=== PATIENT | male | born 1960 | race Caucasian/White ===

== ENCOUNTER 2017-08-23 22:30 | Emergency (ER) | payer MEDICAID, OTHER ==
[~2017-08-23] VITALS: Ht 170.2 cm; Wt 103.0 kg
[2017-08-24 00:10] LABS: BASOPHILS # (AUTO) 0.1 X10'3 (0-0.2); HEMOGLOBIN 13.8 g/dl (14.0-17.9)
[2017-08-24 00:12] LABS: BASOPHILS % (AUTO) 0.6 % (0-1); EOSINOPHILS # (AUTO) 0.6 X10'3 (0-0.9); EOSINOPHILS % (AUTO) 3.4 % (0-6); HEMATOCRIT 41.1 % (42.0-52.0); LYMPHOCYTES # (AUTO) 3.7 X10'3 (1.1-4.8); LYMPHOCYTES % (AUTO) 20.8 % (21-51); MEAN CORPUSCULAR HEMOGLOBIN 28.8 PG (27.0-31.0); MEAN CORPUSCULAR HGB CONC 33.5 % (33.0-36.5); MEAN CORPUSCULAR VOLUME 86.1 FL (78-98); MEAN PLATELET VOLUME 8.9 FL (7.4-10.4); MONOCYTES % (AUTO) 5.4 % (2-12); NEUTROPHILS # (AUTO) 12.4 X10'3 (1.8-7.7); NEUTROPHILS % (AUTO) 69.8 % (42-75); PLATELET COUNT 260 X10'3 (140-440); RED BLOOD COUNT 4.78 X10'6 (4.70-6.10); RED CELL DISTRIBUTION WIDTH 14.3 % (11.5-14.5); WHITE BLOOD COUNT 17.7 X10'3 (4.5-11.0)
[2017-08-24 00:18] LABS: INR 0.9 INR; PROTHROMBIN TIME 9.8 SECONDS (9.0-12.0)
[2017-08-24 00:25] LABS: ALANINE AMINOTRANSFERASE 29 U/L (12-78); ALBUMIN 3.6 G/DL (3.4-5.0); ALKALINE PHOSPHATASE 48 IU/L (46-116); ANION GAP 9 (8-16); ASPARTATE AMINO TRANSFERASE 14 U/L (10-37); BILIRUBIN,TOTAL 0.4 MG/DL (0.1-1.0); BLOOD UREA NITROGEN 9 MG/DL (7-18); BUN/CREATININE RATIO 11.1 (5.4-32.0); CALCIUM 8.8 MG/DL (8.5-10.1); CHLORIDE 103 MMOL/L (99-107); CREATININE 0.81 MG/DL (0.60-1.10); GLUCOSE 104 MG/DL (70-104); POTASSIUM 3.9 MMOL/L (3.5-5.1); SODIUM 139 MMOL/L (135-145); TOTAL CARBON DIOXIDE 27.1 MMOL/L (24-32); TOTAL PROTEIN 7.3 G/DL (6.4-8.2); eGFR > 90 ML/MIN
[2017-08-24] MEDS ORDERED: ketorolac trometh. 30mg/ml inj. IM ONE (01:15)
[2017-08-24 01:39] LABS: CLARITY,URINE CLEAR (Clear); COLOR,URINE YELLOW (Yellow); GLUCOSE, URINE NEGATIVE (Neg); KETONES,URINE NEGATIVE (Neg); LEUKOCYTE ESTERASE ,URINE NEGATIVE (Neg); NITRITES, URINE NEGATIVE (Neg); OCCULT BLOOD,URINE NEGATIVE (Neg); PH,URINE 5.5 (4.8-8.0); PROTEIN,URINE NEGATIVE (Neg); UROBILINOGEN,URINE 0.2 E.U/dL (0.2-1.0)
[2017-08-24 01:48] LABS: UA COLLECTION TYPE URINAL
[2017-08-24 03:16] VITALS: BP 155/90
[2017-08-25] MEDS ORDERED: PRED20TA PO (12:06)
== END 2017-08-24 03:18 | disposition home or self-care (01) ==
LOC: ER 22:31
DX: R10.31 Right lower quadrant pain (principal); G89.29 Other chronic pain; J44.9 Chronic obstructive pulmonary disease, unspecified; F17.200 Nicotine dependence, unspecified, uncomplicated; F12.10 Cannabis abuse, uncomplicated; Z98.890 Other specified postprocedural states
CPT/HCPCS: 36415; 74176; 80053; 81003; 85025; 85610; 96372; 99285; J1885

== ENCOUNTER 2017-10-25 12:34 | Emergency (ER) | payer MEDICAID, OTHER ==
[~2017-10-25] VITALS: Ht 170.2 cm; Wt 104.5 kg
[~2017-10-25 12:34] MED LIST: ALBU8.5H8 IH; BENA20TA2 PO; BUPR150T8 PO; CHOL400T32 PO; DOXY-200 PO; LAMO200T PO; TIOT4MIS5 INH
[2017-10-25 12:35] VITALS: BP 198/128
[2017-10-25] MEDS ORDERED: LIDOcaine 1% 30ml preserv. free vial IJ ONE (12:55)
[2017-10-25] MEDS ORDERED: HYDROcodone/acetaminophen 10/325mg tab PO ONE (12:55)
[2017-10-25] MEDS ORDERED: LIDOcaine 1%/PF 5ML 10 MG/ML VIAL IJ ONE (13:00)
[2017-10-25] MEDS ORDERED: CEPH500C5 PO (13:10)
== END 2017-10-25 13:35 | disposition home or self-care (01) ==
LOC: ER 12:35
DX: S61.412A Laceration without foreign body of left hand, initial encounter (principal); I10 Essential (primary) hypertension; J44.9 Chronic obstructive pulmonary disease, unspecified; F12.90 Cannabis use, unspecified, uncomplicated; G89.29 Other chronic pain; Z98.890 Other specified postprocedural states; Z79.2 Long term (current) use of antibiotics; Z79.899 Other long term (current) drug therapy; X58.XXXA Exposure to other specified factors, initial encounter; Y93.89 Activity, other specified; Y92.89 Other specified places as the place of occurrence of the external cause; Y99.8 Other external cause status
CPT/HCPCS: 99283

== ENCOUNTER 2018-05-24 09:33 | Emergency (ER) | payer MEDICAID, OTHER ==
[~2018-05-24] VITALS: Ht 167.6 cm; Wt 109.0 kg
[~2018-05-24 09:33] MED LIST changes: -BENA20TA2 PO; +BENA20TA82 PO; +CEPH500C5 PO
[2018-05-24] MEDS ORDERED: ondansetron/PF 4mg/2ml inj IV ONE (09:55)
[2018-05-24] MEDS ORDERED: normal saline 1000ML IV soln IVB ONE (09:55)
[2018-05-24] MEDS: morphine 4 MG/ML inj SYRINge IV PRN ×2 (10:05→12:28)
[2018-05-24 10:16] LABS: BASOPHILS # (AUTO) 0.1 X10'3 (0-0.2); BASOPHILS % (AUTO) 0.7 % (0-1); EOSINOPHILS # (AUTO) 0.3 X10'3 (0-0.9); EOSINOPHILS % (AUTO) 2.5 % (0-6); HEMATOCRIT 41.2 % (42.0-52.0); HEMOGLOBIN 13.7 g/dl (14.0-17.9); LYMPHOCYTES # (AUTO) 2.3 X10'3 (1.1-4.8); LYMPHOCYTES % (AUTO) 17.2 % (21-51); MEAN CORPUSCULAR HEMOGLOBIN 28.8 PG (27.0-31.0); MEAN CORPUSCULAR HGB CONC 33.2 % (33.0-36.5); MEAN CORPUSCULAR VOLUME 86.7 FL (78-98); MEAN PLATELET VOLUME 9.2 FL (7.4-10.4); MONOCYTES % (AUTO) 7.1 % (2-12); NEUTROPHILS # (AUTO) 9.8 X10'3 (1.8-7.7); NEUTROPHILS % (AUTO) 72.5 % (42-75); PLATELET COUNT 279 X10'3 (140-440); RED BLOOD COUNT 4.75 X10'6 (4.70-6.10); RED CELL DISTRIBUTION WIDTH 12.9 % (11.5-14.5); WHITE BLOOD COUNT 13.5 X10'3 (4.5-11.0)
[2018-05-24 10:39] LABS: CLARITY,URINE CLEAR (Clear); COLOR,URINE YELLOW (Yellow); GLUCOSE, URINE NEGATIVE (Neg); KETONES,URINE TRACE mg/dl (Neg); LEUKOCYTE ESTERASE ,URINE NEGATIVE (Neg); NITRITES, URINE NEGATIVE (Neg); OCCULT BLOOD,URINE NEGATIVE (Neg); PROTEIN,URINE TRACE mg/dl (Neg)
[2018-05-24 10:40] LABS: UA COLLECTION TYPE CLN CATCH MIDSTREAM
[2018-05-24 10:50] LABS: PROTHROMBIN TIME 10.2 SECONDS (9.0-12.0)
[2018-05-24 10:53] LABS: ALANINE AMINOTRANSFERASE 28 U/L (12-78); ALBUMIN 3.9 G/DL (3.4-5.0); ALKALINE PHOSPHATASE 48 IU/L (46-116); ANION GAP 10 (8-16); ASPARTATE AMINO TRANSFERASE 17 U/L (10-37); BILIRUBIN,TOTAL 0.7 MG/DL (0.1-1.0); BLOOD UREA NITROGEN 10 MG/DL (7-18); BUN/CREATININE RATIO 12.8 (5.4-32.0); CALCIUM 9.2 MG/DL (8.5-10.1); CHLORIDE 96 MMOL/L (99-107); CREATININE 0.78 MG/DL (0.60-1.10); GLUCOSE 107 MG/DL (70-104); LIPASE 304 U/L (73-393); POTASSIUM 3.9 MMOL/L (3.5-5.1); SODIUM 132 MMOL/L (135-145); TOTAL CARBON DIOXIDE 26.1 MMOL/L (24-32); TOTAL PROTEIN 7.9 G/DL (6.4-8.2); eGFR > 90 ML/MIN
[2018-05-24 10:54] LABS: SQUAMOUS EPITHELIAL CELL,UR NONE SEEN /LPF (FEW)
[2018-05-24 10:55] LABS: RBC,URINE 0-2 /HPF (0-2); WBC,URINE 0-4 /HPF (0-4)
[2018-05-24 10:56] LABS: BACTERIA,URINE FEW /HPF (Neg)
[2018-05-24] MEDS ORDERED: mineral oil 133ml enema RC STA (11:19)
[2018-05-24 12:07] VITALS: BP 166/78
[2018-05-24] MEDS ORDERED: magnesium citrate 296ml oral solution PO ONE (12:40)
== END 2018-05-24 12:52 | disposition home or self-care (01) ==
LOC: ER 09:33
DX: R10.11 Right upper quadrant pain (principal); I10 Essential (primary) hypertension; J44.9 Chronic obstructive pulmonary disease, unspecified; G89.29 Other chronic pain; F12.10 Cannabis abuse, uncomplicated; Z79.899 Other long term (current) drug therapy
CPT/HCPCS: 36415; 76700; 80053; 81001; 83690; 85025; 85610; 96374; 96376; 99284; J2270; J2405; J7030

== ENCOUNTER 2019-12-15 15:05 | Inpatient (IN) | payer MEDICAID, OTHER ==
[~2019-12-15] VITALS: Ht 170.2 cm; Wt 122.5 kg
[~2019-12-15 15:05] MED LIST changes: -CEPH500C5 PO; -DOXY-200 PO; +DOXY-243 PO; -LAMO200T PO; +LAMO200T10 PO
[2019-12-15] MEDS ORDERED: ipratropium/albuterol 3ml nebule NEB ONE (17:35)
[2019-12-15] MEDS ORDERED: normal saline 1000ml 1,000 ML IV ONE (17:45)
[2019-12-15 18:42] LABS: BASOPHILS # (AUTO) 0.2 X10'3 (0-0.2); BASOPHILS % (AUTO) 1.3 % (0-1); EOSINOPHILS # (AUTO) 0.2 X10'3 (0-0.9); EOSINOPHILS % (AUTO) 1.6 % (0-6); HEMATOCRIT 44.3 % (42.0-52.0); HEMOGLOBIN 14.1 g/dl (14.0-17.9); LYMPHOCYTES # (AUTO) 2.7 X10'3 (1.1-4.8); LYMPHOCYTES % (AUTO) 22.6 % (21-51); MEAN CORPUSCULAR HEMOGLOBIN 27.6 PG (27.0-31.0); MEAN CORPUSCULAR HGB CONC 31.8 g/dL (33.0-36.5); MEAN CORPUSCULAR VOLUME 86.8 FL (78-98); MONOCYTES # (AUTO) 1.1 X10'3 (0-0.9); NEUTROPHILS # (AUTO) 7.8 X10'3 (1.8-7.7); NEUTROPHILS % (AUTO) 65.5 % (42-75); PLATELET COUNT 255 X10'3 (140-440); RED BLOOD COUNT 5.11 X10'6 (4.70-6.10); RED CELL DISTRIBUTION WIDTH 14.9 % (11.5-14.5); WHITE BLOOD COUNT 11.9 X10'3 (4.5-11.0)
[2019-12-15 19:03] LABS: ALANINE AMINOTRANSFERASE 70 U/L (12-78); ALBUMIN 3.4 G/DL (3.4-5.0); ALKALINE PHOSPHATASE 67 IU/L (46-116); ANION GAP 7 (8-16); ASPARTATE AMINO TRANSFERASE 47 U/L (10-37); BLOOD UREA NITROGEN 23 MG/DL (7-18); BUN/CREATININE RATIO 20.5 (5.4-32.0); CALCIUM 8.7 MG/DL (8.5-10.1); CHLORIDE 103 MMOL/L (99-107); CREATININE 1.12 MG/DL (0.60-1.10); GLUCOSE 125 MG/DL (70-104); POTASSIUM 4.9 MMOL/L (3.5-5.1); SODIUM 141 MMOL/L (135-145); TOTAL PROTEIN 6.8 G/DL (6.4-8.2); eGFR 67 ML/MIN
[2019-12-15] MEDS ORDERED: furosemide 10 MG/1 ML 10ml inj IV ONE (19:30)
[2019-12-15] MEDS ORDERED: labetalol 20mg/4ml (5mg/ml) syringe IV ONE (19:30)
--- NOTE | 2019-12-15 20:26 | NUR ---
COVID SWAB NEGATIVE. AMANDA LYNN NOTIFIED.
[2019-12-15] MEDS ORDERED: acetaminophen 325mg tablet PO PRN ×2 (20:40)
[2019-12-15] MEDS ORDERED: acetaminophen 650mg rectal suppository RC PRN (20:40)
[2019-12-15] MEDS ORDERED: potassium Cl 20 mEq SR tablet PO PRN ×2 (20:40)
[2019-12-15] MEDS ORDERED: magnesium Cl slow-release 64mg tablet PO PRN (20:40)
[2019-12-15] MEDS ORDERED: mag hydrox/Alum hydrox/simeth 30ml oral suspension PO PRN (20:40)
[2019-12-15] MEDS ORDERED: ondansetron/PF 4mg/2ml inj IV PRN (20:40)
[2019-12-15] MEDS ORDERED: methylPREDNISolone sod succ 125mg/2ml vial IV ONE (20:40)
[2019-12-15] MEDS ORDERED: magnesium 2GM in 50ml NS 50 ML IV PRN (20:40)
[2019-12-15] MEDS ORDERED: magnesium hydroxide 30ml (MOM) UD suspension PO PRN (20:40)
[2019-12-15] MEDS ORDERED: HYDROcodone/acetaminophen 10/325mg tab PO PRN (20:40)
[2019-12-15] MEDS ORDERED: potassium CL 10mEq/100ml bag 100 ML IV PRN ×2 (20:40)
[2019-12-15] MEDS ORDERED: ipratropium/albuterol 3ml nebule NEB PRN (20:40)
[2019-12-15] MEDS ORDERED: bisacodyl 10mg suppository rectal RC PRN (20:40)
[2019-12-15] MEDS ORDERED: magnesium 4gm in 100ml NS 100 ML IV PRN (20:40)
[2019-12-15] MEDS ORDERED: HYDROcodone/acetaminophen 5mg/325mg tablet PO PRN (20:40)
[2019-12-15] MEDS ORDERED: iohexol 350MG/ML 100ml bottle IV ONE (20:45)
[2019-12-15] MEDS ORDERED: temazepam 15mg capsule PO PRN (21:00)
--- NOTE | 2019-12-15 21:10 | NUR ---
Patient in room ED 1. I have received report from Jack PATEL and had the opportunity to ask questions. Awaiting patient arrival to room 3012A.
[2019-12-15 21:45] VITALS: BP 170/108
--- NOTE | 2019-12-15 21:50 | NUR ---
Patient arrived on unit at 2119 via wheelchair and ambulated self to bed without difficulty. Patient A&Ox4. Belongings placed at bedside. Placed on seamless tube roller 52. Vital signs obtained: BP: 170/108, HR: 114, SpO2 94% on 1 liter nasal cannula, RR: 22, T: 98.1. Paged regarding elevated blood pressure and heart rate. Patient offers no complaints at this time but is requesting cannabis for chronic pain. Will continue to monitor closely.
--- NOTE | 2019-12-15 21:53 | NUR ---
Paged MD Caldwell regarding elevated blood pressure and heart rate. Ext [phone], Kel RN for Kendall Gonzalez [id number] Patient admitted for new onset CHF & tachycardia tonight, patient BP 170/108 and HR 114. Patient takes benazepril HCl two 20 mg tabs daily. Med rec needs to be addressed please. Thank you
[2019-12-15 22:00] VITALS: BP 161/97
--- NOTE | 2019-12-15 22:00 | NUR ---
NEW ORDER RECEIVED FOR 40 MG IV LASIX ONCE NOW PER DR. PRINCE. WILL CONTINUE TO MONITOR CLOSELY.
[2019-12-15] MEDS: furosemide 40mg/4ml inj IV SCH (22:10)
--- NOTE | 2019-12-15 23:14 | NUR ---
PAGER ID: [phone] MESSAGE: [phone]. [phone], AMANDA Garner for pt in 3012A admitted for new onset CHF and tachycardia. Patient received 40 mg Lasix IV, rechecked BP and still elevated at 171/124 HR 92
[2019-12-16] VITALS (7 sets, daily range): BP systolic 104–171; BP diastolic 66–108
[2019-12-16] MEDS: ipratropium/albuterol 3ml nebule NEB SCH ×6 (00:01→23:00)
[2019-12-16] MEDS: metoprolol tartrate 25mg tablet PO SCH ×3 (00:05→19:31)
[2019-12-16] MEDS: methylPREDNISolone sod succ 125mg/2ml vial IV SCH ×4 (01:59→19:31)
--- NOTE | 2019-12-16 06:05 | NUR ---
Problems reprioritized. Patient report given, questions answered & plan of care reviewed with Cailin PATEL. Patient resting comfortably and showing no signs of distress.
[2019-12-16 06:24] LABS: BASOPHILS % (AUTO) 0.3 % (0-1); EOSINOPHILS % (AUTO) 0.1 % (0-6); HEMATOCRIT 44.1 % (42.0-52.0); HEMOGLOBIN 14.3 g/dl (14.0-17.9); LYMPHOCYTES # (AUTO) 0.7 X10'3 (1.1-4.8); MEAN CORPUSCULAR HEMOGLOBIN 28.1 PG (27.0-31.0); MEAN CORPUSCULAR HGB CONC 32.5 g/dL (33.0-36.5); MEAN CORPUSCULAR VOLUME 86.5 FL (78-98); MONOCYTES # (AUTO) 0.1 X10'3 (0-0.9); MONOCYTES % (AUTO) 0.9 % (2-12); NEUTROPHILS # (AUTO) 8.2 X10'3 (1.8-7.7); NEUTROPHILS % (AUTO) 90.7 % (42-75); PLATELET COUNT 235 X10'3 (140-440); RED CELL DISTRIBUTION WIDTH 14.8 % (11.5-14.5)
--- NOTE | 2019-12-16 06:28 | NUR ---
Patient in room PCU 3012A. I have received report from Pascual RN and Kel RN and had the opportunity to ask questions and assume patient care.
[2019-12-16 06:38] LABS: ALANINE AMINOTRANSFERASE 66 U/L (12-78); ALBUMIN 3.4 G/DL (3.4-5.0); ALKALINE PHOSPHATASE 63 IU/L (46-116); ANION GAP 6 (8-16); ASPARTATE AMINO TRANSFERASE 44 U/L (10-37); BILIRUBIN,TOTAL 0.8 MG/DL (0.1-1.0); BLOOD UREA NITROGEN 25 MG/DL (7-18); BUN/CREATININE RATIO 21.4 (5.4-32.0); CHLORIDE 101 MMOL/L (99-107); CHOL/HDL RATIO 6.5 (0.00-4.99); CHOLESTEROL 207 MG/DL (0-200); CREATININE 1.17 MG/DL (0.60-1.10); GLUCOSE 150 MG/DL (70-104); HDL CHOLESTEROL 32 MG/DL (35-60); LDL CHOLESTEROL 158 MG/DL (50-100); MAGNESIUM 1.7 MG/DL (1.5-2.4); POTASSIUM 3.8 MMOL/L (3.5-5.1); SODIUM 140 MMOL/L (135-145); TOTAL CARBON DIOXIDE 33.2 MMOL/L (24-32); TOTAL PROTEIN 6.8 G/DL (6.4-8.2); TRIGLYCERIDES 81 MG/DL (20-135); eGFR 64 ML/MIN
--- NOTE | 2019-12-16 06:41 | NUR ---
Problems reprioritized. Patient report given, questions answered & plan of care reviewed with AMANDA REA.
[2019-12-16] MEDS: lisinopril 20mg tablet PO SCH (07:18)
[2019-12-16] MEDS: furosemide 40mg/4ml inj IV SCH ×2 (07:19→19:31)
[2019-12-16] MEDS: buPROPion SR 150mg tablet PO SCH ×2 (07:19→19:31)
[2019-12-16] MEDS: lamoTRIgine 100mg tablet PO SCH (07:20)
[2019-12-16] MEDS: NYSTATIN CREAM - 30GM TUBE TP SCH ×2 (07:20→19:55)
[2019-12-16] MEDS ORDERED: enoxaparin 40mg/0.4ml syringe SUBCUT SCH (08:00)
[2019-12-16] MEDS: K and/or MAG REPLACEMENT MC SCH ×2 (08:00→20:00)
--- NOTE | 2019-12-16 11:02 | NUR ---
Not enough fluid to tap patient for thora. Procedure and followup xray cancelled
--- NOTE | 2019-12-16 18:09 | NUR ---
Problems reprioritized. Patient report given, questions answered & plan of care reviewed with Jenny PATEL.
--- NOTE | 2019-12-16 19:20 | NUR ---
Patient in room PCU 3012. I have received report from Jenny PATEL and had the opportunity to ask questions and assume patient care.
[2019-12-16] MEDS ORDERED: levoFLOXACIN 750MG TABLET PO ONE (23:20)
[2019-12-17] MEDS: methylPREDNISolone sod succ 125mg/2ml vial IV SCH ×2 (01:57→07:38)
[2019-12-17 02:00] VITALS: BP 123/61
[2019-12-17 04:53] LABS: BASOPHILS % (AUTO) 0.1 % (0-1); EOSINOPHILS % (AUTO) 0 % (0-6); HEMATOCRIT 41.8 % (42.0-52.0); HEMOGLOBIN 13.4 g/dl (14.0-17.9); LYMPHOCYTES # (AUTO) 0.9 X10'3 (1.1-4.8); LYMPHOCYTES % (AUTO) 5.8 % (21-51); MEAN CORPUSCULAR HGB CONC 32.1 g/dL (33.0-36.5); MEAN CORPUSCULAR VOLUME 87.3 FL (78-98); MEAN PLATELET VOLUME 9.8 FL (7.4-10.4); MONOCYTES # (AUTO) 0.5 X10'3 (0-0.9); NEUTROPHILS # (AUTO) 13.6 X10'3 (1.8-7.7); NEUTROPHILS % (AUTO) 91.1 % (42-75); PLATELET COUNT 240 X10'3 (140-440); RED BLOOD COUNT 4.79 X10'6 (4.70-6.10); RED CELL DISTRIBUTION WIDTH 14.9 % (11.5-14.5); WHITE BLOOD COUNT 14.9 X10'3 (4.5-11.0)
[2019-12-17 04:58] LABS: ALANINE AMINOTRANSFERASE 55 U/L (12-78); ALBUMIN 3.1 G/DL (3.4-5.0); ALKALINE PHOSPHATASE 52 IU/L (46-116); ANION GAP 4 (8-16); ASPARTATE AMINO TRANSFERASE 27 U/L (10-37); BILIRUBIN,TOTAL 0.7 MG/DL (0.1-1.0); BLOOD UREA NITROGEN 28 MG/DL (7-18); BUN/CREATININE RATIO 22.8 (5.4-32.0); CHLORIDE 101 MMOL/L (99-107); CREATININE 1.23 MG/DL (0.60-1.10); GLUCOSE 148 MG/DL (70-104); MAGNESIUM 1.8 MG/DL (1.5-2.4); POTASSIUM 3.5 MMOL/L (3.5-5.1); SODIUM 141 MMOL/L (135-145); TOTAL PROTEIN 6.2 G/DL (6.4-8.2); eGFR 60 ML/MIN
--- NOTE | 2019-12-17 06:11 | NUR ---
Problems reprioritized. Patient report given, questions answered & plan of care reviewed with Odessa PATEL.
--- NOTE | 2019-12-17 06:34 | NUR ---
Patient in room U 3012. I have received report from AMANDA Eckert and had the opportunity to ask questions and assume patient care. Patient awake and sitting up in chair, and in no acute distress.
[2019-12-17 07:00] VITALS: BP 145/91
[2019-12-17] MEDS: buPROPion SR 150mg tablet PO SCH (07:35)
[2019-12-17] MEDS: lamoTRIgine 100mg tablet PO SCH (07:35)
[2019-12-17] MEDS: lisinopril 20mg tablet PO SCH (07:36)
[2019-12-17 07:37] VITALS: BP_SYST 145
[2019-12-17] MEDS: metoprolol tartrate 25mg tablet PO SCH (07:37)
[2019-12-17] MEDS: furosemide 40mg/4ml inj IV SCH (07:38)
[2019-12-17] MEDS: K and/or MAG REPLACEMENT MC SCH (07:48)
[2019-12-17] MEDS: ipratropium/albuterol 3ml nebule NEB SCH (07:55)
[2019-12-17] MEDS: NYSTATIN CREAM - 30GM TUBE TP SCH (09:00)
[2019-12-17] MEDS ORDERED: METO-395 PO (10:41)
[2019-12-17] MEDS ORDERED: PRED10TA23 PO (10:41)
[2019-12-17] MEDS ORDERED: LEVO500T89 PO (10:41)
[2019-12-17] MEDS ORDERED: BUDE10.22 INH (10:41)
[2019-12-17] MEDS ORDERED: FURO-150 PO (10:42)
[2019-12-17] MEDS ORDERED: POTA10TA36 PO (10:42)
--- NOTE | 2019-12-17 11:07 | NUR ---
Patient had wound pictures taken at 1305 yesterday. Addendum: 12/17/19 at 1107 by Odessa Vasquez RN Amended: Links added.
--- NOTE | 2019-12-17 11:50 | NUR ---
Patient stable for discharge per MD orders. All discharge instructions reviewed and questions answered appropriately. Belongings collected and sent with patient. [facility] and [facility] of new [facility] given to [facility] to [facility] as [facility]. [facility]. Home medications were given to patient on discharge. Wound pictures were taken less than 24 hours prior to discharge. Wound care supplies given to patient. PIV discontinued and cannula intact. alarm security or surveillance monitor discontinued. Patient wheeled down to lobby and left via private vehicle.
[2019-12-17] MEDS ORDERED: levoFLOXACIN 750MG TABLET PO SCH (22:00)
== END 2019-12-17 11:50 | disposition home or self-care (01) | DRG 291 ==
LOC: ER 15:06 → ED HOLD 20:36 → PCU 3S 21:20
PROVIDERS: ADMIT Family Medicine; ATTEND Family Medicine
PROC: 0WJ93ZZ Inspection of Right Pleural Cavity, Percutaneous Approach (ICD-10-PCS; principal; 2019-12-16)
DX: I13.0 Hypertensive heart and chronic kidney disease with heart failure and stage 1 through stage 4 chronic kidney disease, or unspecified chronic kidney disease (principal); I50.33 Acute on chronic diastolic (congestive) heart failure; J96.01 Acute respiratory failure with hypoxia; J44.1 Chronic obstructive pulmonary disease with (acute) exacerbation; J91.8 Pleural effusion in other conditions classified elsewhere; Z20.828 Contact with and (suspected) exposure to other viral communicable diseases; Z88.8 Allergy status to other drugs, medicaments and biological substances; Z91.048 Other nonmedicinal substance allergy status; E78.5 Hyperlipidemia, unspecified; F17.210 Nicotine dependence, cigarettes, uncomplicated; G62.9 Polyneuropathy, unspecified; N18.9 Chronic kidney disease, unspecified; Z66 Do not resuscitate; F12.90 Cannabis use, unspecified, uncomplicated; G89.29 Other chronic pain; M54.9 Dorsalgia, unspecified
CPT/HCPCS: 36415; 71045; 71275; 76604; 80053; 80061; 83735; 83880; 85025; 87081; 87635; 93005; 93306; 94640; 94760; 97116; 97161; 99285; G0378; J1650; J1940; J2930; J3490; J7030; Q9967